=== PATIENT | male | born 1960 | race Caucasian/White ===

== ENCOUNTER 2017-07-15 08:28 | Day surgery (SDC) | payer BC ==
[~2017-07-15 08:28] MED LIST: Buffered Lidocaine 0.9% SYRIN* 5 ML/SYR SYRINGE INTRADERM ONE
[2017-07-15] MEDS ORDERED: ceFAZolin 2 GM PREMIX (*) 2 GM/50 ML BAG IVPB ONE (08:36)
[2017-07-15] MEDS ORDERED: Buffered Lidocaine 0.9% SYRIN* 5 ML/SYR SYRINGE ONE (08:36)
[2017-07-15] MEDS ORDERED: Midazolam* 1 MG/ML 2 ML VIAL (2 MG) ONE ×2 (09:22)
[2017-07-15] MEDS ORDERED: fentaNYL* 50 MCG/ML 2 ML VIAL (100 MCG VIAL) ONE ×2 (09:22→14:54)
[2017-07-15] MEDS ORDERED: EPINEPHRINE 1 MG/ML 1 ML VIAL ONE (10:04)
[2017-07-15] MEDS ORDERED: Bupivacaine 0.5% SDV PF* 30 ML VIAL ONE (14:40)
[2017-07-15] MEDS ORDERED: Ondansetron INJ* 2 MG/ML VIAL IV PRN (15:28)
[2017-07-15] MEDS ORDERED: Ketorolac INJ* 30 MG/ML 1 ML VIAL IV PRN (15:28)
[2017-07-15] MEDS ORDERED: fentaNYL* 50 MCG/ML 2 ML VIAL (100 MCG VIAL) IV PRN (15:28)
[2017-07-15] MEDS ORDERED: Ketorolac INJ* 30 MG/ML 1 ML VIAL ONE (15:52)
[2017-07-15 17:09] VITALS: BP 153/84
--- NOTE | 2017-07-16 10:39 | OP ---
OPERATIVE REPORT: DATE OF OPERATION: 07/15/17 DATE OF : 62 SURGEON: Tremayne Holman MD RETREADER: WEST Rehman A physician assistant community manager was required for the length of the procedure for help with positioning, instrumentation, assistance with closure. ANESTHESIOLOGIST: Galo Beltre DO ANESTHESIA: General anesthesia, regional interscalene block anesthesia, local anesthesia 0.5% Marcaine without epinephrine 10 cc. PRE-OP DIAGNOSES: 1. Right shoulder massive rotator cuff tendon tear, supraspinatus, likely also infraspinatus, upper half subscapularis. 2. Right shoulder proximal biceps tendinosis and subluxation. 3. Right shoulder AC joint arthritis and subacromial impingement. POST-OP DIAGNOSES: 1. Right shoulder massive rotator cuff tendon tear, supraspinatus, anterior aspect of infraspinatus, upper half subscapularis. 2. Right shoulder biceps tendinosis and medial subluxation. 3. Right shoulder subacromial impingement and AC joint arthritis. OPERATIVE PROCEDURE: 1. Right shoulder arthroscopic rotator cuff repair, supraspinatus, upper half subscapularis. 2. Right shoulder arthroscopic biceps tenodesis. 3. Right shoulder arthroscopic subacromial decompression 4. Right shoulder arthroscopic distal clavicle resection. 5. Right shoulder arthroscopic release of biceps and debridement of superior labrum IV FLUIDS: 1000 cc crystalloid. ANTIBIOTICS: Ancef 2 g IV. SPECIMEN: None. COMPLICATIONS: None. IMPLANTS: Yimi and Yimi Mitek suture anchors, 5.5 mm suture anchor, Healix, triple loaded, 5.5 mm knotless Healix suture anchor x1. 4.5 mm Healix suture anchor, double loaded. ESTIMATED BLOOD LOSS: Minimal. 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 He had fallen out of a tree stand 4 to 5 years prior and injured his right shoulder. The patient first presented to me in September and I diagnosed him by MRI with a retracted chronic tear to the supraspinatus, upper half subscapularis and likely part of the infraspinatus. The patient was not able to pursue surgery immediately because of some social obligations, work related and so delayed surgery until now. We spoke before surgery about risks and potential complications of surgery including bleeding, infection, nerve or blood vessel injury, shoulder pain, stiffness, osteoarthritis, implant failure, rotator cuff retear. I booked the patient for a rotator cuff repair and either a biceps release or open tenodesis of biceps. The decision was going to be made intraoperatively. DESCRIPTION OF PROCEDURE: Preoperatively, consent was signed in preoperative holding. Operative extremity was marked in preoperative holding. Part of the patient's shoulder was shaved in preoperative holding. Interscalene block was performed by Dr. Beltre in preoperative holding. The patient was brought back to the operating room and placed supine on the operating room table. The patient was sedated and intubated. More of the right shoulder was shaved, its hair. The patient was turned into lateral decubitus position. Simons bag inflated. Axillary roll placed. All bony prominences padded. Right shoulder was placed in the appropriate forward flexion and abduction. 15 pounds of traction. ChloraPrep of the right shoulder. Draping performed. Surgical time-out performed. I entered the posterior glenohumeral joint with a spinal needle. I infused 30 cc of normal saline. I then entered the shoulder from creating a posterior glenohumeral joint portal using standard technique. I started my diagnostic arthroscopy. The patient had some grade 1 changes, but no unstable cartilage of the humeral head and glenoid. He had significant tendinosis about the biceps tendon. A clear rotator cuff tear retracted medial to the glenoid. He also had clear tear of the upper portion of the subscapularis tendon. Anticipating a subscapularis rotator cuff repair, I next created an anterosuperior portal. I made this lateral to the retracted upper half subscapularis. I debrided synovitic tissue about the subscapularis tendon. At this point, I considered placing a traction stitch in the subscapularis. However, due to how retracted the subscapularis was with the supraspinatus, I thought there would be undue pressure on all of those tendons and difficult to place my anteroinferior portal for placement of anchor with this extent of medial retraction of all tissues. Therefore, instead of at this time performing a subscapularis repair from the vantage point of the glenohumeral joint, I moved to the subacromial space. I replaced my trochanteric cannula from posterior directly into the subacromial space. I created a lateral subacromial portal under visualization. I debrided significant amount of bursitic tissue in the subacromial space. This improved visualization of the retracted rotator cuff. I established a new anterolateral portal that I applied my inflow tube. There appeared to be an L-shaped tear present in the supraspinatus. The longitudinal part of the tear was posterior and then a full width of supraspinatus and part of infraspinatus tear distally. The tear may have included the anterior-most part of the infraspinatus as well. I cleared off the undersurface of the acromion with a vapor. I debrided very minimal inferior hook of the anterior aspect of the acromion. My ayan on full power for some reason was having some difficulty aggressively taking down this bone. I debrided a minimal several millimeters of bone and there looked to be ample space without impingement, so I did not remove more. The bare footprint on the greater tuberosity, I debrided with a vapor arthroscopic shaver and then ayan to prepare for a nice bed for healing. I created 2 different posterolateral portals that aided in visualization of the rotator cuff. The cuff appeared that it could be brought to bone nicely without pressure. It should be stated that before I tested this out, I loosened up the undersurface of the rotator cuff with a switching stick debriding any adhesions between the labrum and the rotator cuff. I created a superolateral portal through which I first placed a triple loaded suture anchor about midway from medial to lateral in the greater tuberosity footprint. I then using Latham suture passers, placed a horizontal mattress stitch in the rotator cuff right at the corner of the L. I next placed 2 additional stitches with the Latham suture passer from that anchor. Each of these stitches close down some of the longitudinal limb of the tear. One was medial and the other one was lateral to the original stitch. This brought rotator cuff tissue nicely to bone. No exposed bare area remaining. To oppose the tissue to more nicely to bone, I decided to put one lateral row anchor in. Using 4 sutures from my medial row anchor, I placed them into a knotless 5.5 mm suture anchor more laterally and distal on the greater tuberosity. I probed my repair and it was nicely stable, as well it was stable with movement. To close down more of the longitudinal limb of the tear more medially, I placed a side by side stitch, using an Latham suture passer and an Orthocord #2 suture. All suture ends were cut. I next debated how to repair the subscapularis, whether I would do it from inside the glenohumeral joint or subacromial. I entered the glenohumeral joint and considered that approach and then visualized as well the subscapularis from the subacromial space. Ultimately, I decided to repair it from the subacromial space. I cleared off some footprint, placed a 4.5 mm double loaded suture anchor and placed 2 simple stitches through the subscapularis rotator cuff tendon. I tied these and cut the suture ends. Repairs all appeared stable. I debrided some additional subacromial bursitic tissue. I approached the AC joint, which was filled with bursitic tissue. I debrided this. I created a new anterior portal, just anterior to the AC joint. I entered a ayan and debrided distal clavicle, so there was at least 8 mm space between the bone ends. Instruments and fluid removed from the subacromial space. I closed skin incisions with [id number] and 12 stitches using nylon 4-0 suture. The simons bag was deflated and the patient was turned into a supine position. Anesthesia was watching the head and neck carefully. We reinflated the simons bag and placed the patient supine on the operating room table. I marked a skin incision longitudinal over the anteromedial upper arm centered just distal to the inferior aspect of the pectoralis major tendon. I incised skin and subcutaneous tissue. I followed the pectoralis major tendon to the bicipital groove and identified the long head of the biceps tendon. I tried to pull the biceps tendon from the wound. I confirmed that it was the biceps tendon and I followed it up the bicipital groove. However, it seemed to be incorporated into the subscapularis rotator cuff repair. I tugged it and tried to loosen it, take it free with my fingers. However, it was firmly affixed, essentially an arthroscopic biceps tenodesis as the biceps tendon was incorporated into the subscapularis repair. Therefore, I decided to close up the open tenodesis incision. Irrigation. Closure of the subcutaneous tissue with buried simple stitches using Vicryl 3-0 suture. Closure of the subcuticular layer with a running stitch using Monocryl 4-0 suture. Mastisol followed by Steri-Strips for this open incision distally. Tegaderm after a 4 x 4 was placed over the incision. The remainder of the incisions had Xeroform, followed by 4x4s followed by ABDs. [id number] tape over the whole shoulder. Cooling unit, shoulder sling and abduction pillow. The patient was awakened and extubated and brought to the PACU. DISPOSITION: The patient will follow up with me in 10 to 14 days. He will start physical therapy next week. He will follow my rotator cuff tendon protocol. He will take Percocet as needed for pain control, Keflex for 3 days for infection prophylaxis, and aspirin for 2 weeks for DVT prophylaxis. [id number]/CPS #: [id number] MTDD
== END 2017-07-15 17:09 | disposition home or self-care (01) ==
LOC: OR 08:28
PROVIDERS: ATTEND Orthopaedic Surgery
DX: M75.121 Complete rotator cuff tear or rupture of right shoulder, not specified as traumatic (principal); M75.81 Other shoulder lesions, right shoulder; M25.811 Other specified joint disorders, right shoulder; M19.011 Primary osteoarthritis, right shoulder; I10 Essential (primary) hypertension; R73.03 Prediabetes; K21.9 Gastro-esophageal reflux disease without esophagitis; Z68.39 Body mass index [BMI] 39.0-39.9, adult
CPT/HCPCS: J0690; J1885; J2250; J3010

== ENCOUNTER 2018-07-31 07:04 | Emergency (ER) | payer BC ==
--- OUTSIDE RECORDS SUMMARY | 2018-07-31 07:20 | XMS REPORT | Continuity of Care Document ---
:1960 External Reference #:[id number] Author Name Ginny Turcios PA Address [address] [place] [address] Care Team Providers Name Role Phone Davonte Yanez M.D. Care Team Information Stock Supervisor Unavailable Payers Type Date Identification Numbers Payment Provider Subscriber Effective: Policy Number: [id number] [employer] 2011 Group Name: BS CN [address] [address] PayID: [id number] [place] [address] Advance Directives Description No Information Available Problems Date Description Provider Status Onset: 09/14/2011 Pure hypercholesterolemia Ginny Turcios PA Active Onset: 09/14/2011 Essential hypertension Ginny Turcios PA Active Onset: 09/14/2011 Type 2 diabetes mellitus Ginny Turcios PA Active Onset: 06/28/2018 Obesity Ginyn Turcios PA Active Onset: 06/28/2018 Gastroesophageal reflux disease Ginny Turcios PA Active Onset: 06/28/2018 Rotator cuff tear arthropathy Ginny Turcios PA Active Family History Date Family Member(s) Problem(s) Comments Father due to Prostate Cancer () Mother due to Breast Cancer () Social History Type Date Description Comments Sex Unknown Marital Status Has been 1 time Lives With Spouse Pets 3 dogs Hand Dominance Right-Handed ETOH Use Occasionally consumes alcohol Tobacco Use Reviewed: 01/03/14 Patient has never smoked 09/27/14 Recreational Drug Use Never Used Drugs Tobacco Use Start: Unknown 6 pack of beer weekly Smoking Status Reviewed: 06/28/18 Patient has never smoked 09/27/14 Allergies, Adverse Reactions, Alerts Description No Known Drug Allergies Medications Medication Date Status Form Strength Qnty SIG Indications Ordering Provider Freestyle 06/07/ Active Misc 100un use daily and Davonte Lancjose armando 2018 its as needed Castellan os, M.D. Metformin HCL 04/24/ Active Tablets ER 500mg 60tab take one Davonte ER 2018 24HR s tablets daily Castellan for the first os, M.D. 2 weeks then increase to to 2 tabletsdaily Freestyle 04/24/ Active Strips 50uni use once Davonte Vargas Test 2018 ts daily and Castellan prn for os, M.D. glucose testing Freestyle 04/24/ Active Device 1unit use daily as Davonte Vargas Blood 2018 s directed for Castellan Glucose glucose os, M.DRadha Monitoring monitoring System Avapro 02/21/ Active Tablets 150mg 30tab 1 by mouth Davonte 2017 s every day Castellan os, M.D. Zantac 03/06/ Active Tablets 300mg 90tab 1 poqhs K21.9 Davonte 2012 s Castellan osMable Omeprazole 03/06/ Active Capsules DR 20mg 60cap take 1 K21.9 Davonte 2012 s capsule by Castellan mouth twice a os, M.D. day Topicort 09/29/ Hx Cream 0.25% 15gm apply to R21 Davonte 2016 - affected area Castellan 06/29/ twice daily os, M.D. 2017 for 5 days Cortisporin 02/12/ Hx 380.22 Davonte Otic 2013 - Castellan Suspension 09/27/ os, M.D. 2014 Neomycin/Poly 02/12/ Hx Suspension 3.5-33962 15ml 3-4 ggtts 380.22 Davonte myxin/Hydroco 2013 - -1 four times a Castellan rtisone 02/12/ day in os, M.D. 2013 affected ear for 5-7 days Ciprodex 02/12/ Hx Suspension 0.3-0.1% 7.5ml 4 ggts 380.22 Davonte 2013 - instilled in Castellan 09/27/ affected ear os, M.D. 2014 twice a day for five to seven day Proventil HFA 11/21/ Hx Aerosol 108(90Bas 8.5g 2 puffs every Davonte 2013 - e) 4 hours as Castellan 07/15/ mcg/Act needed if os, M.D. 2013 condition persists or worsens return to office or ER Tessalon 11/15/ Hx Capsules 200mg 30cap one three 786.2 Davonte 2014 - s times a day Castellan 02/12/ as needed os, M.D. 2013 cough Robitussin 11/15/ Hx 4Oz 1-2 tsps at 786.2 Davonte With Codeine 2013 - bedtime for Castellan 02/12/ cough os, M.D. 2013 Zithromax 09/05/ Hx Tablets 250mg 6tabs day number 461.9 Davonte Z-Sarath 2013 - one two Castellan 09/05/ tablets then os, M.D. 2013 day number two thru day number five one qd Biaxin 09/05/ Hx Tablets 500mg 20tab 1 by mouth 461.9 Davonte 2013 - s twice a day Castellan 02/12/ os, M.D. 2013 Vitamin D 08/21/ Hx 00467Kp 4unit one q weekly Davonte 2012 - s Castellan 07/02/ os, M.D. 2012 Biaxin 07/04/ Hx Tablets 500mg 28tab 1 po bid 461.1 Davonte 2011 - s Castellan 07/02/ os, M.D. 2012 Valsartan-Hyd 06/28/ Hx Tablets 160-25mg 90tab take 1 tablet Davonte rochlorothiaz 2011 - s by mouth once Castellan jyothi 02/21/ daily os, M.D. 2017 Vitamin D 04/21/ Hx Capsules [id number] 4caps take 1 790.6 Davonte 2011 - capsule by Castellan 07/02/ mouth once os, M.D. 2012 weekly Diovan HCT 09/14/ Hx Tablets 160-25mg 30tab take 1 tablet Davonte 2011 - s by mouth once Castellan 07/02/ daily (Needs os, M.D. 2012 Office Visit) Immunizations CPT Code Status Date Vaccine Reaction Lot # 12649 Given 04/24/2018 Tdap Vaccine over 7 risk & benefits Tdap [id number] yrs old discussed 23005 Given 04/24/2018 Influenza risk & benefits FLU 3> [id number] Vac,Quad,Split=>3 Yrs discussed 19766 Given 05/13/2017 Influenza Vac,Quad,Split=>3 Yrs 23809 Given 04/02/2016 Influenza Vac,Quad,Split=>3 Yrs 79056 Given 05/13/2015 Influenza Vac,Quad,Split=>3 Yrs 89820 Given 05/13/2014 Flu Triv Old Code 12248 Given 05/23/2013 Flu Triv Old Code 44893 Given 08/29/2012 Flu Triv Old Code [id number] 22858 Given 05/06/2006 Td- Toxoids Absorbed - Adult 58063 Given 04/01/1994 Rabies Vaccine 10531 Given 03/18/1994 Rabies Vaccine 22499 Given 03/11/1994 Rabies Vaccine 13255 Given 03/08/1994 Rabies Vaccine Vital Signs Date Vital Result Comment 06/28/2018 8:50am Weight 245.00 lb BP Systolic 134 mmHg BP Diastolic 70 mmHg Height 66.6 inches 5'6.60" Body Temperature 98.8 F Respiratory Rate 12 /min BMI (Body Mass Index) 38.8 kg/m2 04/24/2018 8:42am Weight 256.00 lb BP Systolic 140 mmHg BP Diastolic 80 mmHg 03/28/2018 8:55am Weight 256.00 lb w boots BP Systolic 130 mmHg BP Diastolic 80 mmHg 06/29/2017 9:33am Weight 251.00 lb BP Systolic 128 mmHg BP Diastolic 76 mmHg Height 66.6 inches 5'6.60" BMI (Body Mass Index) 39.8 kg/m2 09/30/2016 8:30am Weight 248.00 lb BP Systolic 130 mmHg BP Diastolic 78 mmHg Height 66.6 inches 5'6.60" Body Temperature 98.8 F Respiratory Rate 12 /min BMI (Body Mass Index) 39.3 kg/m2 09/30/2015 8:42am Weight 240.00 lb BP Systolic 130 mmHg BP Diastolic 78 mmHg Height 66.6 inches 5'6.60" Heart Rate 64 /min Body Temperature 98.8 F Respiratory Rate 12 /min BMI (Body Mass Index) 38.0 kg/m2 09/27/2014 8:26am Weight 247.00 lb BP Systolic 132 mmHg BP Diastolic 80 mmHg Height 66 inches 5'6" Heart Rate 60 /min Body Temperature 98.1 F Respiratory Rate 12 /min BMI (Body Mass Index) 39.9 kg/m2 02/12/2014 8:32am Weight 250.00 lb BP Systolic 130 mmHg BP Diastolic 80 mmHg 01/03/2014 8:56am Weight 243.00 lb BP Systolic 138 mmHg BP Diastolic 70 mmHg 11/15/2013 4:15pm Weight 242.00 lb BP Systolic 140 mmHg BP Diastolic 82 mmHg Body Temperature 97.8 F 09/05/2013 9:26am Weight 239.00 lb BP Systolic 130 mmHg BP Diastolic 80 mmHg Height 66.4 inches 5'6.40" Heart Rate 70 /min Body Temperature 98.8 F Respiratory Rate 12 /min BMI (Body Mass Index) 38.1 kg/m2 07/02/2013 8:27am Weight 245.00 lb BP Systolic 130 mmHg BP Diastolic 80 mmHg 03/06/2013 4:38pm BP Systolic 140 mmHg BP Diastolic 80 mmHg 03/06/2013 3:46pm Weight 243.00 lb BP Systolic 160 mmHg BP Diastolic 90 mmHg 02/28/2013 8:26am Weight 243.00 lb BP Systolic 130 mmHg BP Diastolic 78 mmHg 08/29/2012 8:34am Weight 236.00 lb BP Systolic 130 mmHg BP Diastolic 78 mmHg Height 66 inches 5'6" Heart Rate 70 /min Body Temperature 98.8 F Respiratory Rate 16 /min BMI (Body Mass Index) 38.1 kg/m2 07/04/2012 10:37am Weight 235.00 lb Body Temperature 98.9 F 04/21/2012 12:34pm BP Systolic 130 mmHg BP Diastolic 80 mmHg 04/21/2012 8:40am Weight 231.00 lb BP Systolic 140 mmHg BP Diastolic 80 mmHg Height 66 inches 5'6" BMI (Body Mass Index) 37.3 kg/m2 01/03/2012 8:43am Weight 233.00 lb BP Systolic 138 mmHg BP Diastolic 90 mmHg Height 66 inches 5'6" BMI (Body Mass Index) 37.6 kg/m2 09/14/2011 8:29am Weight 232.00 lb BP Systolic 118 mmHg BP Diastolic 70 mmHg Height 66 inches 5'6" BMI (Body Mass Index) 37.4 kg/m2 Results Test Date Facility Test Result H/L Range Note Basic Metabolic Panel 06/20/2018 [facility] Glucose 140 mg/dL High 74-106 5 [phone] BUN 16 mg/dL N 7-18 Creatinine 1.1 mg/dL N 0.6-1.3 Glom Filtration Rate, Estimate >60 mL/min >60 If >60 mL/min >60 2 BUN/Creat 14.5 ratio Sodium 141 mmol/L N 136-145 Potassium 4.5 mmol/L N 3.5-5.1 Chloride 106 mmol/L N 98-107 Carbon Dioxide 26 mmol/L N 21-32 Anion Gap 9 mEq/L N 8-16 Calcium 8.7 mg/dL N 8.5-10.1 Hemoglobin A1c 06/20/2018 [facility] Glycohemoglobin 7.0 % High 4.2 -6.3 3 (Glyco HGB) [phone] (A1c) eAG 154 mg/dL Liver Function Panel 06/20/2018 [facility] Total Protein 7.6 g/dL N 6.4-8.2 [phone] Albumin 4.0 g/dL N 3.4-5.0 Globulin 3.6 g/dL N 1.9-4.3 Alb/Glob 1.1 ratio Bilirubin,Total 0.6 mg/dL N 0.2-1.0 Bilirubin,Direct 0.2 mg/dL N 0.0-0.2 Bilirubin,Indirect 0.4 mg/dL N 0.0-0.9 Sgot/Ast 55 U/L High 15-37 SGPT/Alt 108 U/L High 12-78 Alkaline Phosphatase 76 U/L N 45-117 Basic Metabolic Panel 04/07/2018 [facility] Glucose 267 mg/dL High 74-106 4 [phone] BUN 17 mg/dL N 7-18 Creatinine 1.1 mg/dL N 0.6-1.3 Glom Filtration Rate, Estimate >60 mL/min >60 If >60 mL/min >60 5 BUN/Creat 15.4 ratio Sodium 142 mmol/L N 136-145 Potassium 4.1 mmol/L N 3.5-5.1 Chloride 108 mmol/L High 98-107 Carbon Dioxide 28 mmol/L N 21-32 Anion Gap 6 mEq/L Low 8-16 Calcium 8.6 mg/dL N 8.5-10.1 Hemoglobin A1c 04/07/2018 [facility] Glycohemoglobin 9.1 % High 4.2 -6.3 6 (Glyco HGB) [phone] (A1c) eAG 214 mg/dL Liver Function Panel 04/07/2018 [facility] Total Protein 7.1 g/dL N 6.4-8.2 [phone] Albumin 3.9 g/dL N 3.4-5.0 Globulin 3.2 g/dL N 1.9-4.3 Alb/Glob 1.2 ratio Bilirubin,Total 0.6 mg/dL N 0.2-1.0 Bilirubin,Direct 0.2 mg/dL N 0.0-0.2 Bilirubin,Indirect 0.4 mg/dL N 0.0-0.9 Sgot/Ast 54 U/L High 15-37 SGPT/Alt 112 U/L High 12-78 Alkaline Phosphatase 96 U/L N 45-117 Lipid Profile 04/07/2018 [facility] Cholesterol 164 mg/dL <200 7 (Trig/Chol/HDL) [phone] Triglycerides 212 mg/dL High <150 8 HDL Cholesterol 32 mg/dL Low >40 9 LDL-Cholesterol 90 mg/dL < 100 10 Basic Metabolic Panel 07/05/2017 [facility] Glucose 136 mg/dL High 74-106 11 [phone] BUN 20 mg/dL High 7-18 Creatinine 1.1 mg/dL N 0.6-1.3 Glom Filtration Rate, Estimate >60 mL/min >60 If >60 mL/min >60 12 BUN/Creat 18.1 ratio Sodium 142 mmol/L N 136-145 Potassium 4.2 mmol/L N 3.5-5.1 Chloride 106 mmol/L N 98-107 Carbon Dioxide 29 mmol/L N 21-32 Anion Gap 7 mEq/L Low 8-16 Calcium 9.2 mg/dL N 8.5-10.1 CBC Auto Diff 07/05/2017 [facility] White Blood Count 5.4 K/uL N 3.4-10.5 [phone] Red Blood Count 4.53 M/uL N 4.20-5.80 Hemoglobin 15.3 gm/dL N 12.8-17.0 Hematocrit 42.6 % N 38.0-48.0 Mean Cell Volume 94.0 fl N 80.0-96.0 Mean Corpuscular HGB 33.8 pg High 27.0-33.0 Mean Corpuscular HGB Conc 35.9 g/dL N 31.7-36.0 Platelet Count 163 K/uL N 150-400 Red Cell Distri Width SD 43.1 fl N 36-51 Red Cell Distri Width %CV 12.8 % N 11.6-15.8 Mean Platelet Volume 11.8 fL High 6.6-10.6 Neut% 49.3 % N 33.0-73.0 Lymph % 35.1 % N 20.0-42.0 [place] % 10.1 % High 0.0-10.0 Eo% 4.9 % N 0.0-6.6 Bas% 0.6 % N 0.0-1.1 Neut# 2.65 K/uL N 1.8-7.0 Lymph # 1.88 K/uL N 1.0-4.0 [place] # 0.54 K/uL N 0.0-0.8 Eos # 0.26 K/uL N 0.0-0.5 Baso # 0.03 K/uL N 0.0-0.1 Hemoglobin A1c 07/05/2017 [facility] Glycohemoglobin 6.8 % High 4.2 -6.3 13 (Glyco HGB) [phone] (A1c) eAG 148 mg/dL Lipid Profile 07/05/2017 [facility] Cholesterol 194 mg/dL <200 14 (Trig/Chol/HDL) [phone] Triglycerides 223 mg/dL High <150 15 HDL Cholesterol 44 mg/dL >40 16 LDL-Cholesterol 105 mg/dL < 100 17 Liver Function Panel 07/05/2017 [facility] Total Protein 7.7 g/dL N 6.4-8.2 [phone] Albumin 4.1 g/dL N 3.4-5.0 Globulin 3.6 g/dL N 1.9-4.3 Alb/Glob 1.1 ratio Bilirubin,Total 0.5 mg/dL N 0.2-1.0 Bilirubin,Direct 0.1 mg/dL N 0.0-0.2 Bilirubin,Indirect 0.4 mg/dL N 0.0-0.9 Sgot/Ast 26 U/L N 15-37 SGPT/Alt 70 U/L N 12-78 Alkaline Phosphatase 72 U/L N 45-117 Basic Metabolic Panel 10/08/2016 [facility] Glucose 146 mg/dL High 74-106 18 [phone] BUN 19 mg/dL High 7-18 Creatinine 1.2 mg/dL N 0.6-1.3 Glom Filtration Rate, Estimate >60 mL/min >60 If >60 mL/min >60 19 BUN/Creat 15.8 ratio Sodium 143 mmol/L N 136-145 Potassium 4.2 mmol/L N 3.5-5.1 Chloride 107 mmol/L N 98-107 Carbon Dioxide 26 mmol/L N 21-32 Anion Gap 10 mEq/L N 8-16 Calcium 8.9 mg/dL N 8.5-10.1 CBC Auto Diff 10/08/2016 [facility] White Blood Count 5.3 K/uL N 3.4-10.5 [phone] Red Blood Count 4.58 M/uL N 4.20-5.80 Hemoglobin 15.0 gm/dL N 12.8-17.0 Hematocrit 42.4 % N 38.0-48.0 Mean Cell Volume 92.6 fl N 80.0-96.0 Mean Corpuscular HGB 32.8 pg N 27.0-33.0 Mean Corpuscular HGB Conc 35.4 g/dL N 31.7-36.0 Platelet Count 188 K/uL N 150-400 Red Cell Distri Width SD 43.9 fl N 36-51 Red Cell Distri Width %CV 13.4 % N 11.6-15.8 Mean Platelet Volume 10.8 fL High 6.6-10.6 Neut% 52.5 % N 33.0-73.0 Lymph % 33.0 % N 20.0-42.0 [place] % 9.3 % N 0.0-10.0 Eo% 4.4 % N 0.0-6.6 Bas% 0.8 % N 0.0-1.1 Neut# 2.77 K/uL N 1.8-7.0 Lymph # 1.74 K/uL N 1.0-4.0 [place] # 0.49 K/uL N 0.0-0.8 Eos # 0.23 K/uL N 0.0-0.5 Baso # 0.04 K/uL N 0.0-0.1 Lipid Profile 10/08/2016 [facility] Cholesterol 191 mg/dL <200 20 (Trig/Chol/HDL) [phone] Triglycerides 144 mg/dL <150 21 HDL Cholesterol 40 mg/dL >40 22 LDL-Cholesterol 122 mg/dL < 100 23 Liver Function Panel 10/08/2016 [facility] Total Protein 7.5 g/dL N 6.4-8.2 [phone] Albumin 4.3 g/dL N 3.4-5.0 Globulin 3.2 g/dL N 1.9-4.3 Alb/Glob 1.3 ratio Bilirubin,Total 0.5 mg/dL N 0.2-1.0 Bilirubin,Direct 0.1 mg/dL N 0.0-0.2 Bilirubin,Indirect 0.4 mg/dL N 0.0-0.9 Sgot/Ast 32 U/L N 15-37 SGPT/Alt 68 U/L N 12-78 Alkaline Phosphatase 75 U/L N 45-117 Hemoglobin A1c 10/08/2016 [facility] Glycohemoglobin 6.7 % High 4.2 -6.3 24 (Glyco HGB) [phone] (A1c) eAG 146 mg/dL Basic Metabolic Panel 10/10/2015 [facility] Glucose 120 mg/dL High 74-106 [phone] BUN 18 mg/dL 7-18 Creatinine 1.1 mg/dL 0.6-1.3 Glom Filtration Rate, Estimate >60 mL/min >60 If >60 mL/min >60 25 BUN/Creat 16.3 ratio Sodium 141 mmol/L 136-145 Potassium 4.4 mmol/L 3.5-5.1 Chloride 105 mmol/L 98-107 Carbon Dioxide 28 mmol/L 21-32 Anion Gap 8 mEq/L 8-16 Calcium 8.8 mg/dL 8.5-10.1 CBC W/Automated Diff 10/10/2015 [facility] White Blood 5.2 K/uL 3.4-10.5 [phone] Count Red Blood Count 4.70 M/uL 4.20-5.80 Hemoglobin 15.7 gm/dL 12.8-17.0 Hematocrit 43.3 % 38.0-48.0 Mean Cell Volume 92.1 fl 80.0-96.0 Mean Corpuscular HGB 33.4 pg High 27.0-33.0 Mean Corpuscular HGB Conc 36.3 g/dL High 31.7-36.0 Platelet Count 166 K/uL 150-400 Red Cell Distri Width SD 43.2 fl 36-51 Red Cell Distri Width %CV 13.1 % 11.6-15.8 Mean Platelet Volume 11.5 fL High 6.6-10.6 Neut% 47.9 % 33.0-73.0 Lymph % 33.8 % 17.0-56.0 [place] % 10.3 % High 0.0-10.0 Eo% 6.9 % High 0.0-5.0 Bas% 1.1 % High 0.1-1.0 Neut# 2.50 K/uL 1.8-7.0 Lymph # 1.77 K/uL Low 1.8-7.0 [place] # 0.54 K/uL 0.0-0.8 Eos # 0.36 K/uL 0.0-0.5 Baso # 0.06 K/uL Low 0.1-0.2 LDL Cholesterol Profile 10/10/2015 [facility] Cholesterol 191 mg/dL <200 26 [phone] Triglycerides 118 mg/dL <150 27 HDL Cholesterol 38 mg/dL Low >40 28 LDL-Cholesterol 129 mg/dL < 100 29 Liver Function Tests 10/10/2015 [facility] Total Protein 7.6 g/dL 6.4-8.2 [phone] Albumin 4.2 g/dL 3.4-5.0 Globulin 3.4 g/dL 1.9-4.3 Alb/Glob 1.2 ratio Bilirubin,Total 0.6 mg/dL 0.2-1.0 Bilirubin,Direct 0.1 mg/dL 0.0-0.2 Bilirubin,Indirect 0.5 mg/dL 0.0-0.9 Sgot/Ast 29 U/L 15-37 SGPT/Alt 51 U/L 12-78 Alkaline Phosphatase 76 U/L 45-117 Hemoglobin A1c 10/10/2015 [facility] Glycohemoglobin (A1c) 5.8 % 4.2-6.3 30 [phone] eAG 120 mg/dL Basic Metabolic Panel 09/04/2014 [facility] Glucose 134 mg/dL High 74-106 [phone] BUN 14 mg/dL 7-18 Creatinine 1.1 mg/dL 0.6-1.3 Glom Filtration Rate, Estimate >60 mL/min >60 If >60 mL/min >60 31 BUN/Creat 12.7 ratio Sodium 142 mmol/L 136-145 Potassium 4.1 mmol/L 3.5-5.1 Chloride 106 mmol/L 98-107 Carbon Dioxide 29 mmol/L 21-32 Anion Gap 11 mEq/L 8-16 Calcium 8.9 mg/dL 8.5-10.1 Glycohemoglobin A1c 09/04/2014 [facility] Glycohemoglobin 6.1 % 4.2-6.3 32 [phone] (A1c) eAG 128 mg/dL Basic Metabolic Panel 12/26/2013 [facility] Glucose 132 mg/dL High 76-115 [phone] BUN 19 mg/dL 5-23 Creatinine 1.0 mg/dL 0.5-1.4 Glom Filtration Rate, Estimate >60 mL/min >60 If >60 mL/min >60 33 BUN/Creat 19.0 ratio Sodium 138 mmol/L 136-145 Potassium 3.8 mmol/L 3.5-5.1 Chloride 106 mmol/L 98-107 Carbon Dioxide 27 mEq/L 18-29 Anion Gap 9 mEq/L 8-16 Calcium 9.1 mg/dL 8.5-10.1 LDL Cholesterol Profile 12/26/2013 [facility] Cholesterol 195 mg/dL 120-200 [phone] Triglycerides 120 mg/dL 16-231 HDL Cholesterol 41 mg/dL 29-83 LDL-Cholesterol 130 mg/dL 62-185 Liver Function Tests 12/26/2013 [facility] Total Protein 7.7 g/dL 6.3-8.0 [phone] Albumin 4.2 g/dL 3.5-5.0 Globulin 3.5 g/dL 1.9-4.3 Alb/Glob 1.2 ratio Bilirubin,Total 0.6 mg/dL 0.2-1.2 Bilirubin,Direct < 0.1 mg/dL Low 0.1-0.4 Bilirubin,Indirect 0.5 mg/dL 0.0-0.9 Sgot/Ast 38 U/L 16-40 SGPT/Alt 64 U/L 30-65 Alkaline Phosphatase 65 U/L 50-136 Glycohemoglobin 12/26/2013 [facility] Glycohemoglobin 6.3 % High 4.8-6.0 34 A1c [phone] (A1c) eAG 134 mg/dL Basic Metabolic Panel 08/29/2013 [facility] Glucose 125 mg/dL High 76-115 [phone] BUN 18 mg/dL 5-23 Creatinine 1.0 mg/dL 0.5-1.4 Glom Filtration Rate, Estimate >60 mL/min >60 If >60 mL/min >60 35 BUN/Creat 18.0 ratio Sodium 139 mmol/L 136-145 Potassium 4.0 mmol/L 3.5-5.1 Chloride 105 mmol/L 98-107 Carbon Dioxide 28 mEq/L 18-29 Anion Gap 10 mEq/L 8-16 Calcium 9.3 mg/dL 8.5-10.1 Glycohemoglobin A1c 08/29/2013 [facility] Glycohemoglobin 5.8 % 4.8-6.0 36 [phone] (A1c) eAG 120 mg/dL LDL Cholesterol Profile 06/27/2013 [facility] Cholesterol 199 mg/dL 120-200 [phone] Triglycerides 123 mg/dL 16-231 HDL Cholesterol 42 mg/dL 29-83 LDL-Cholesterol 132 mg/dL 62-185 Laboratory 06/27/2013 [facility] Vitamin 38.2 30.0-100.0 37 test finding [phone] D,25-Hydroxy ng/mL Basic 06/27/2013 [facility] Glucose 129 High 76-115 Metabolic [phone] mg/dL Panel BUN 19 mg/dL 5-23 Creatinine 1.1 mg/dL 0.5-1.4 Glom Filtration Rate, Estimate >60 mL/min >60 If >60 mL/min >60 38 BUN/Creat 17.2 ratio Sodium 138 mmol/L 136-145 Potassium 3.9 mmol/L 3.5-5.1 Chloride 103 mmol/L 98-107 Carbon Dioxide 30 mEq/L High 18-29 Anion Gap 9 mEq/L 8-16 Calcium 9.0 mg/dL 8.5-10.1 Glycohemoglobin A1c 06/27/2013 [facility] Glycohemoglobin 5.7 % 4.8-6.0 39 [phone] (A1c) eAG 117 mg/dL Basic Metabolic Panel 02/21/2013 [facility] Glucose 116 mg/dL High 76-115 [phone] BUN 14 mg/dL 5-23 Creatinine 1.1 mg/dL 0.5-1.4 Glom Filtration Rate, Estimate >60 mL/min >60 If >60 mL/min >60 40 BUN/Creat 12.7 ratio Sodium 141 mmol/L 136-145 Potassium 4.2 mmol/L 3.5-5.1 Chloride 105 mmol/L 98-107 Carbon Dioxide 27 mEq/L 18-29 Anion Gap 13 mEq/L 8-16 Calcium 9.1 mg/dL 8.5-10.1 LDL Cholesterol Profile 02/21/2013 [facility] Cholesterol 185 mg/dL 120-200 [phone] Triglycerides 131 mg/dL 16-231 HDL Cholesterol 45 mg/dL 29-83 LDL-Cholesterol 114 mg/dL 62-185 Liver Function Tests 02/21/2013 [facility] Total Protein 7.3 g/dL 6.3-8.0 [phone] Albumin 4.2 g/dL 3.5-5.0 Globulin 3.1 g/dL 1.9-4.3 Alb/Glob 1.4 ratio Bilirubin,Total 0.5 mg/dL 0.2-1.2 Bilirubin,Direct 0.1 mg/dL 0.1-0.4 Bilirubin,Indirect 0.4 mg/dL 0.0-0.9 Sgot/Ast 27 U/L 16-40 SGPT/Alt 54 U/L 30-65 Alkaline Phosphatase 77 U/L 50-136 Glycohemoglobin A1c 02/21/2013 [facility] Glycohemoglobin 5.7 % 4.8-6.0 41 [phone] (A1c) eAG 117 mg/dL Laboratory 02/21/2013 [facility] Vitamin 26.21 32.0-100.0 42 test finding [phone] D,25-Hydroxy ng/mL Laboratory 10/20/2012 [facility] Vitamin 38.5 30.0-100.0 43 test finding [phone] D,25-Hydroxy ng/mL Basic 08/18/2012 [facility] Glucose 128 High 76-115 Metabolic [phone] mg/dL Panel BUN 18 mg/dL 5-23 Creatinine 1.0 mg/dL 0.5-1.4 Glom Filtration Rate, Estimate >60 mL/min >60 If >60 mL/min >60 44 BUN/Creat 18.0 ratio Sodium 142 mmol/L 136-145 Potassium 4.1 mmol/L 3.5-5.1 Chloride 105 mmol/L 98-107 Carbon Dioxide 30 mEq/L High 18-29 Anion Gap 11 mEq/L 8-16 Calcium 9.8 mg/dL 8.5-10.1 CBC W/Automated Diff 08/18/2012 [facility] White Blood 4.7 K/uL 3.4-10.5 [phone] Count Red Blood Count 4.71 M/uL 4.20-5.80 Hemoglobin 15.5 gm/dL 12.8-17.0 Hematocrit 43.8 % 38.0-48.0 Mean Cell Volume 93.0 fl 80.0-96.0 Mean Corpuscular HGB 32.9 pg 27.0-33.0 Mean Corpuscular HGB Conc 35.4 g/dL 31.7-36.0 Platelet Count 216 K/uL 150-400 Red Cell Distri Width SD 44.1 fl 36-51 Red Cell Distri Width %CV 13.2 % 11.6-15.8 Mean Platelet Volume 10.5 fL 6.6-10.6 Neut% 51.1 % 33.0-73.0 Lymph % 34.2 % 17.0-56.0 [place] % 9.5 % 0.0-10.0 Eo% 4.4 % 0.0-5.0 Bas% 0.8 % 0.1-1.0 Neut# 2.41 K/uL 1.8-7.0 Lymph # 1.62 K/uL 1.2-4.0 [place] # 0.45 K/uL 0.0-0.6 Eos # 0.21 K/uL 0.0-0.5 Baso # 0.04 K/uL Low 0.1-0.2 Laboratory test 08/18/2012 [facility] Vitamin 24.1 Low 30.0-100.0 45 finding [phone] D,25-Hydroxy ng/mL Glycohemoglobin 08/18/2012 [facility] Glycohemoglobin 5.7 % 4.8- 6.0 46 A1c [phone] (A1c) eAG 117 mg/dL Basic Metabolic Panel 04/19/2012 [facility] Glucose 117 mg/dL High 76-115 [phone] BUN 14 mg/dL 5-23 Creatinine 1.0 mg/dL 0.5-1.4 Glom Filtration Rate, Estimate >60 mL/min >60 If >60 mL/min >60 47 BUN/Creat 14.0 ratio Sodium 140 mmol/L 136-145 Potassium 3.9 mmol/L 3.5-5.1 Chloride 104 mmol/L 98-107 Carbon Dioxide 27 mEq/L 18-29 Anion Gap 13 mEq/L 8-16 Calcium 9.3 mg/dL 8.5-10.1 LDL Cholesterol Profile 04/19/2012 [facility] Cholesterol 190 mg/dL 120-200 [phone] Triglycerides 124 mg/dL 16-231 HDL Cholesterol 50 mg/dL 29-83 LDL-Cholesterol 115 mg/dL 62-185 Liver Function Tests 04/19/2012 [facility] Total Protein 7.3 g/dL 6.3-8.0 [phone] Albumin 4.0 g/dL 3.5-5.0 Globulin 3.3 g/dL 1.9-4.3 Alb/Glob 1.2 ratio Bilirubin,Total 0.7 mg/dL 0.2-1.2 Bilirubin,Direct 0.2 mg/dL 0.1-0.4 Bilirubin,Indirect 0.5 mg/dL 0.0-0.9 Sgot/Ast 15 U/L Low 16-40 SGPT/Alt 32 U/L 30-65 Alkaline Phosphatase 54 U/L 50-136 Glycohemoglobin A1c 04/19/2012 [facility] Glycohemoglobin 5.9 % 4.8-6.0 48 [phone] (A1c) eAG 123 mg/dL Laboratory test 04/19/2012 [facility] Vitamin 25.7 Low 30.0-100.0 49 finding [phone] D,25-Hydroxy ng/mL Glycohemoglobin 01/12/2012 [facility] Glycohemoglobin 6.0 % 4.8- 6.0 50 A1c [phone] (A1c) eAG 126 mg/dL Liver Function Tests 01/12/2012 [facility] Total Protein 7.5 g/dL 6.3-8.0 [phone] Albumin 4.2 g/dL 3.5-5.0 Globulin 3.3 g/dL 1.9-4.3 Alb/Glob 1.3 ratio Bilirubin,Total 0.4 mg/dL 0.2-1.2 Bilirubin,Direct < 0.1 mg/dL Low 0.1-0.4 Bilirubin,Indirect 0.3 mg/dL 0.0-0.9 Sgot/Ast 19 U/L 16-40 SGPT/Alt 32 U/L 30-65 Alkaline Phosphatase 65 U/L 50-136 LDL Cholesterol Profile 01/12/2012 [facility] Cholesterol 184 mg/dL 120-200 [phone] Triglycerides 71 mg/dL 16-231 HDL Cholesterol 52 mg/dL 29-83 LDL-Cholesterol 118 mg/dL 62-185 Basic Metabolic Panel 01/12/2012 [facility] Glucose 113 mg/dL 76- 115 [phone] BUN 20 mg/dL 5-23 Creatinine 1.0 mg/dL 0.5-1.4 Glom Filtration Rate, Estimate >60 mL/min >60 If >60 mL/min >60 51 BUN/Creat 20.0 ratio Sodium 144 mmol/L 136-145 Potassium 3.9 mmol/L 3.5-5.1 Chloride 110 mmol/L High 98-107 Carbon Dioxide 26 mEq/L 18-29 Anion Gap 12 mEq/L 8-16 Calcium 9.3 mg/dL 8.5-10.1 Glycohemoglobin A1c 09/10/2011 [facility] Glycohemoglobin 6.0 % 4.8-6.0 52 [phone] (A1c) eAG 126 mg/dL LDL Cholesterol Profile 09/10/2011 [facility] Cholesterol 187 mg/dL 120-200 [phone] Triglycerides 83 mg/dL 16-231 HDL Cholesterol 47 mg/dL 29-83 LDL-Cholesterol 123 mg/dL 62-185 Basic Metabolic Panel 09/10/2011 [facility] Glucose 123 mg/dL High 76-115 [phone] BUN 17 mg/dL 5-23 Creatinine 0.9 mg/dL 0.5-1.4 Glom Filtration Rate, Estimate >60 mL/min >60 If >60 mL/min >60 53 BUN/Creat 18.8 ratio Sodium 142 mmol/L 136-145 Potassium 4.1 mmol/L 3.5-5.1 Chloride 106 mmol/L 98-107 Carbon Dioxide 28 mEq/L 18-29 Anion Gap 12 mEq/L 8-16 Calcium 9.1 mg/dL 8.5-10.1 Liver Function Tests 09/10/2011 [facility] Total Protein 7.4 g/dL 6.3-8.0 [phone] Albumin 4.2 g/dL 3.5-5.0 Globulin 3.2 g/dL 1.9-4.3 Alb/Glob 1.3 ratio Bilirubin,Total 0.6 mg/dL 0.2-1.2 Bilirubin,Direct 0.1 mg/dL 0.1-0.4 Bilirubin,Indirect 0.5 mg/dL 0.0-0.9 Sgot/Ast 19 U/L 16-40 SGPT/Alt 33 U/L 30-65 Alkaline Phosphatase 59 U/L 50-136 1 R79.9 2 Note: Persistent reduction for 3 months or more in an eGFR <60 mL/min/1.73 m2 defines CKD. Patients with eGFR values >/=60 mL/min/1.73 m2 may also have CKD if evidence of persistent proteinuria is present. The original MDRD equation for estimated GFR is not valid for patients less than 18 years of age. Additional information may be found at www.kdoqi.org. 3 Elevated levels of HbA1c suggest the need for more aggressive treatment of glycemia. The [place] [employer] recommends that a primary goal of therapy should be a HbA1c of <7% and that physicians should re-evaluate the treatment regimen in patients with HbA1c values consistently >8%. 4 I10,E73.9,R21.9 5 Note: Persistent reduction for 3 months or more in an eGFR <60 mL/min/1.73 m2 defines CKD. Patients with eGFR values >/=60 mL/min/1.73 m2 may also have CKD if evidence of persistent proteinuria is present. The original MDRD equation for estimated GFR is not valid for patients less than 18 years of age. Additional information may be found at www.kdoqi.org. 6 Elevated levels of HbA1c suggest the need for more aggressive treatment of glycemia. The [place] [employer] recommends that a primary goal of therapy should be a HbA1c of <7% and that physicians should re-evaluate the treatment regimen in patients with HbA1c values consistently >8%. 7 Reference Guidelines*: Desirable: ........... < 200 mg/dL Borderline High: ..... 200-239 mg/dL High: ................ >=240 mg/dL * The National Cholesterol Education Program (NCEP) 8 Reference Guidelines*: Normal: ............. < 150 mg/dL Borderline High: .... 150-199 mg/dL High: ............... 200-499 mg/dL Very High: .......... > 500 mg/dL * Source: National Cholesterol Education Program (NCEP) 9 Reference Guidelines*: Low HDL: ..... < 40 mg/dL Normal: ..... 40-60 mg/dL Desirable: ... > 60 mg/dL *The National Cholesterol Education Program(NCEP) 10 Reference Guidelines*: Optimal:........... <100 mg/dL Near Optimal....... 100-129 mg/dL Borderline High.... 130-159 mg/dL High............... 160-189 mg/dL Very High.......... >=190 mg/dL * Source: National Cholesterol Education Program (NCEP) 11 I10,R73.9,E78.5,K21.9 12 Note: Persistent reduction for 3 months or more in an eGFR <60 mL/min/1.73 m2 defines CKD. Patients with eGFR values >/=60 mL/min/1.73 m2 may also have CKD if evidence of persistent proteinuria is present. The original MDRD equation for estimated GFR is not valid for patients less than 18 years of age. Additional information may be found at www.kdoqi.org. 13 Elevated levels of HbA1c suggest the need for more aggressive treatment of glycemia. The [place] [employer] recommends that a primary goal of therapy should be a HbA1c of <7% and that physicians should re-evaluate the treatment regimen in patients with HbA1c values consistently >8%. 14 Reference Guidelines*: Desirable: ........... < 200 mg/dL Borderline High: ..... 200-239 mg/dL High: ................ >=240 mg/dL * The National Cholesterol Education Program (NCEP) 15 Reference Guidelines*: Normal: ............. < 150 mg/dL Borderline High: .... 150-199 mg/dL High: ............... 200-499 mg/dL Very High: .......... > 500 mg/dL * Source: National Cholesterol Education Program (NCEP) 16 Reference Guidelines*: Low HDL: ..... < 40 mg/dL Normal: ..... 40-60 mg/dL Desirable: ... > 60 mg/dL *The National Cholesterol Education Program(NCEP) 17 Reference Guidelines*: Optimal:........... <100 mg/dL Near Optimal....... 100-129 mg/dL Borderline High.... 130-159 mg/dL High............... 160-189 mg/dL Very High.......... >=190 mg/dL * Source: National Cholesterol Education Program (NCEP) 18 E78.5,K21.9,R73.9 19 Note: Persistent reduction for 3 months or more in an eGFR <60 mL/min/1.73 m2 defines CKD. Patients with eGFR values >/=60 mL/min/1.73 m2 may also have CKD if evidence of persistent proteinuria is present. The original MDRD equation for estimated GFR is not valid for patients less than 18 years of age. Additional information may be found at www.kdoqi.org. 20 Reference Guidelines*: Desirable: ........... < 200 mg/dL Borderline High: ..... 200-239 mg/dL High: ................ >=240 mg/dL * The National Cholesterol Education Program (NCEP) 21 Reference Guidelines*: Normal: ............. < 150 mg/dL Borderline High: .... 150-199 mg/dL High: ............... 200-499 mg/dL Very High: .......... > 500 mg/dL * Source: National Cholesterol Education Program (NCEP) 22 Reference Guidelines*: Low HDL: ..... < 40 mg/dL Normal: ..... 40-60 mg/dL Desirable: ... > 60 mg/dL *The National Cholesterol Education Program(NCEP) 23 Reference Guidelines*: Optimal:........... <100 mg/dL Near Optimal....... 100-129 mg/dL Borderline High.... 130-159 mg/dL High............... 160-189 mg/dL Very High.......... >=190 mg/dL * Source: National Cholesterol Education Program (NCEP) 24 Elevated levels of HbA1c suggest the need for more aggressive treatment of glycemia. The [place] [employer] recommends that a primary goal of therapy should be a HbA1c of <7% and that physicians should re-evaluate the treatment regimen in patients with HbA1c values consistently >8%. 25 Note: Persistent reduction for 3 months or more in an eGFR <60 mL/min/1.73 m2 defines CKD. Patients with eGFR values >/=60 mL/min/1.73 m2 may also have CKD if evidence of persistent proteinuria is present. The original MDRD equation for estimated GFR is not valid for patients less than 18 years of age. Additional information may be found at www.kdoqi.org. 26 Reference Guidelines*: Desirable: ........... < 200 mg/dL Borderline High: ..... 200-239 mg/dL High: ................ >=240 mg/dL * The National Cholesterol Education Program (NCEP) 27 Reference Guidelines*: Normal: ............. < 150 mg/dL Borderline High: .... 150-199 mg/dL High: ............... 200-499 mg/dL Very High: .......... > 500 mg/dL * Source: National Cholesterol Education Program (NCEP) 28 Reference Guidelines*: Low HDL: ..... < 40 mg/dL Normal: ..... 40-60 mg/dL Desirable: ... > 60 mg/dL *The National Cholesterol Education Program(NCEP) 29 Reference Guidelines*: Optimal:........... <100 mg/dL Near Optimal....... 100-129 mg/dL Borderline High.... 130-159 mg/dL High............... 160-189 mg/dL Very High.......... >=190 mg/dL * Source: National Cholesterol Education Program (NCEP) 30 Elevated levels of HbA1c suggest the need for more aggressive treatment of glycemia. The [place] [employer] recommends that a primary goal of therapy should be a HbA1c of <7% and that physicians should re-evaluate the treatment regimen in patients with HbA1c values consistently >8%. 31 Note: Persistent reduction for 3 months or more in an eGFR <60 mL/min/1.73 m2 defines CKD. Patients with eGFR values >/=60 mL/min/1.73 m2 may also have CKD if evidence of persistent proteinuria is present. The original MDRD equation for estimated GFR is not valid for patients less than 18 years of age. Additional information may be found at www.kdoqi.org. 32 Elevated levels of HbA1c suggest the need for more aggressive treatment of glycemia. The [place] [employer] recommends that a primary goal of therapy should be a HbA1c of <7% and that physicians should re-evaluate the treatment regimen in patients with HbA1c values consistently >8%. 33 Note: Persistent reduction for 3 months or more in an eGFR <60 mL/min/1.73 m2 defines CKD. Patients with eGFR values >/=60 mL/min/1.73 m2 may also have CKD if evidence of persistent proteinuria is present. The original MDRD equation for estimated GFR is not valid for patients less than 18 years of age. Additional information may be found at www.kdoqi.org. 34 A1c value between 5.7% and 6.4% is considered at increased risk for diabetes. A1c value greater than 6.5 % is considered essentially diagnostic for Type II diabetes. Current guidelines recommend a treatment goal of <7% for diabetic patients. This method will measure glycosylated hemoglobin variants, HbS, HbG, HbH, HbWayne, HbC, HbE, etc. Other hemoglobin- opathies may give incorrect results with this test. 35 Note: Persistent reduction for 3 months or more in an eGFR <60 mL/min/1.73 m2 defines CKD. Patients with eGFR values >/=60 mL/min/1.73 m2 may also have CKD if evidence of persistent proteinuria is present. The original MDRD equation for estimated GFR is not valid for patients less than 18 years of age. Additional information may be found at www.kdoqi.org. 36 A1c value between 5.7% and 6.4% is considered at increased risk for diabetes. A1c value greater than 6.5 % is considered essentially diagnostic for Type II diabetes. Current guidelines recommend a treatment goal of <7% for diabetic patients. This method will measure glycosylated hemoglobin variants, HbS, HbG, HbH, HbWayne, HbC, HbE, etc. Other hemoglobin- opathies may give incorrect results with this test. 37 Vitamin D deficiency has been defined by the [place] [employer] and an Endocrine Society practice guideline as a level of serum 25-OH vitamin D less than 20 ng/mL (1,2). The Endocrine Society went on to further define vitamin D insufficiency as a level between 21 and 29 ng/mL (2). 1. IOM ([place] [employer]). 2010. Dietary reference intakes for calcium and D. [place]: The National Academies Press. 2. Cali MF, Alison PENDLETON, Javier LOU, et al. Evaluation, treatment, and prevention of vitamin D deficiency: an Endocrine Society clinical practice guideline. JCEM. 2010; 96(7):1911-30. Performed at: RN - [facility] [address] [id number] [facility]: Arminda Edmonds MD, Phone: [phone] 38 Note: Persistent reduction for 3 months or more in an eGFR <60 mL/min/1.73 m2 defines CKD. Patients with eGFR values >/=60 mL/min/1.73 m2 may also have CKD if evidence of persistent proteinuria is present. The original MDRD equation for estimated GFR is not valid for patients less than 18 years of age. Additional information may be found at www.kdoqi.org. 39 A1c value between 5.7% and 6.4% is considered at increased risk for diabetes. A1c value greater than 6.5 % is considered essentially diagnostic for Type II diabetes. Current guidelines recommend a treatment goal of <7% for diabetic patients. This method will measure glycosylated hemoglobin variants, HbS, HbG, HbH, HbWayne, HbC, HbE, etc. Other hemoglobin- opathies may give incorrect results with this test. 40 Note: Persistent reduction for 3 months or more in an eGFR <60 mL/min/1.73 m2 defines CKD. Patients with eGFR values >/=60 mL/min/1.73 m2 may also have CKD if evidence of persistent proteinuria is present. The original MDRD equation for estimated GFR is not valid for patients less than 18 years of age. Additional information may be found at www.kdoqi.org. 41 A1c value between 5.7% and 6.4% is considered at increased risk for diabetes. A1c value greater than 6.5 % is considered essentially diagnostic for Type II diabetes. Current guidelines recommend a treatment goal of <7% for diabetic patients. This method will measure glycosylated hemoglobin variants, HbS, HbG, HbH, HbWayne, HbC, HbE, etc. Other hemoglobin- opathies may give incorrect results with this test. 42 Vitamin D deficiency has been defined by the [place] [employer] and an Endocrine Society practice guideline as a level of serum 25-OH vitamin D less than 20 ng/mL (1,2). The Endocrine Society went on to further define vitamin D insufficiency as a level between 21 and 29 ng/mL (2). 1. IOM ([place] [employer]). 2010. Dietary reference intakes for calcium and D. [place]: The National Academies Press. 2. Alison Rodriguez, Javier LOU et al. Evaluation, treatment, and prevention of vitamin D deficiency: an Endocrine Society clinical practice guideline. JCEM. 2010; 96(7):1911-30. Performed at: RN - [facility] [address] [id number] [facility]: Arminda Edmonds MD, Phone: [phone] 43 Vitamin D deficiency has been defined by the [place] [employer] and an Endocrine Society practice guideline as a level of serum 25-OH vitamin D less than 20 ng/mL (1,2). The Endocrine Society went on to further define vitamin D insufficiency as a level between 21 and 29 ng/mL (2). 1. IOM ([place] [employer]). 2010. Dietary reference intakes for calcium and D. [place]: The National Academies Press. 2. Alison Rodriguez Bischoff-Ferrari HA et al. Evaluation, treatment, and prevention of vitamin D deficiency: an Endocrine Society clinical practice guideline. JCEM. 2010; 96(7):1911-30. Performed at: RN - [facility] [address] [id number] [facility]: Arminda Edmonds MD, Phone: [phone] 44 Note: Persistent reduction for 3 months or more in an eGFR <60 mL/min/1.73 m2 defines CKD. Patients with eGFR values >/=60 mL/min/1.73 m2 may also have CKD if evidence of persistent proteinuria is present. The original MDRD equation for estimated GFR is not valid for patients less than 18 years of age. Additional information may be found at www.kdoqi.org. 45 Vitamin D deficiency has been defined by the [place] [employer] and an Endocrine Society practice guideline as a level of serum 25-OH vitamin D less than 20 ng/mL (1,2). The Endocrine Society went on to further define vitamin D insufficiency as a level between 21 and 29 ng/mL (2). 1. IOM ([place] [employer]). 2010. Dietary reference intakes for calcium and D. [place]: The National Academies Press. 2. Cali MF, Alison PENDLETON, Javier LOU, et al. Evaluation, treatment, and prevention of vitamin D deficiency: an Endocrine Society clinical practice guideline. JCEM. 2010; 96(7):1911-30. Performed at: RN - [facility] [address] [id number] [facility]: Arminda Edmonds MD, Phone: [phone] 46 A1c value between 5.7% and 6.4% is considered at increased risk for diabetes. A1c value greater than 6.5 % is considered essentially diagnostic for Type II diabetes. Current guidelines recommend a treatment goal of <7% for diabetic patients. This method will measure glycosylated hemoglobin variants, HbS, HbG, HbH, HbWayne, HbC, HbE, etc. Other hemoglobin- opathies may give incorrect results with this test. 47 Note: Persistent reduction for 3 months or more in an eGFR <60 mL/min/1.73 m2 defines CKD. Patients with eGFR values >/=60 mL/min/1.73 m2 may also have CKD if evidence of persistent proteinuria is present. The original MDRD equation for estimated GFR is not valid for patients less than 18 years of age. Additional information may be found at www.kdoqi.org. 48 A1c value between 5.7% and 6.4% is considered at increased risk for diabetes. A1c value greater than 6.5 % is considered essentially diagnostic for Type II diabetes. Current guidelines recommend a treatment goal of <7% for diabetic patients. This method will measure glycosylated hemoglobin variants, HbS, HbG, HbH, HbWayne, HbC, HbE, etc. Other hemoglobin- opathies may give incorrect results with this test. 49 Vitamin D deficiency has been defined by the [place] [employer] and an Endocrine Society practice guideline as a level of serum 25-OH vitamin D less than 20 ng/mL (1,2). The Endocrine Society went on to further define vitamin D insufficiency as a level between 21 and 29 ng/mL (2). 1. IOM ([place] [employer]). 2010. Dietary reference intakes for calcium and D. [place]: The National Academies Press. 2. Cali MF, Alison [place], Javier LOU, et al. Evaluation, treatment, and prevention of vitamin D deficiency: an Endocrine Society clinical practice guideline. JCEM. 2010; 96(2):1911-30. Performed at: RN - [facility] [address] [id number] [facility]: Arminda Edmonds MD, Phone: [phone] 50 A1c value between 5.7% and 6.4% is considered at increased risk for diabetes. A1c value greater than 6.5 % is considered essentially diagnostic for Type II diabetes. Current guidelines recommend a treatment goal of <7% for diabetic patients. This method will measure glycosylated hemoglobin variants, HbS, HbG, HbH, HbWayne, HbC, HbE, etc. Other hemoglobin- opathies may give incorrect results with this test. 51 Note: Persistent reduction for 3 months or more in an eGFR <60 mL/min/1.73 m2 defines CKD. Patients with eGFR values >/=60 mL/min/1.73 m2 may also have CKD if evidence of persistent proteinuria is present. The original MDRD equation for estimated GFR is not valid for patients less than 18 years of age. Additional information may be found at www.kdoqi.org. 52 A1c value between 5.7% and 6.4% is considered at increased risk for diabetes. A1c value greater than 6.5 % is considered essentially diagnostic for Type II diabetes. Current guidelines recommend a treatment goal of <7% for diabetic patients. This method will measure glycosylated hemoglobin variants, HbS, HbG, HbH, HbWayne, HbC, HbE, etc. Other hemoglobin- opathies may give incorrect results with this test. 53 Note: Persistent reduction for 3 months or more in an eGFR <60 mL/min/1.73 m2 defines CKD. Patients with eGFR values >/=60 mL/min/1.73 m2 may also have CKD if evidence of persistent proteinuria is present. The original MDRD equation for estimated GFR is not valid for patients less than 18 years of age. Additional information may be found at www.kdoqi.org. Procedures Date Code Description Status 06/29/2017 54840 EKG Completed 09/30/2016 41304 Audiogram, Screen Only Pure Tone Completed 09/30/2015 42920 Audiogram, Screen Only Pure Tone Completed 09/27/2014 41531 Audiogram, Screen Only Pure Tone Completed 09/05/2013 44163 Snellen Only Vison Completed 09/05/2013 84313 Hearing Test Completed 08/01/2013 [id number] Colonoscopy Completed 03/06/2013 94188 EKG Completed 08/29/2012 66154 Snellen Only Vison Completed 08/29/2012 76847 EKG Completed 08/29/2012 10102 Hearing Test Completed 09/24/2010 52746 Snellen Only Vison Completed 09/24/2010 55763 Hearing Test Completed Encounters Type Date Location Provider Dx Diagnosis Office Visit 06/28/2018 8:45a Main Office Ginny Turcios PA Z00.01 Encounter for general adult medical exam w abnormal findings R79.9 Abnormal finding of blood chemistry, unspecified E11.69 Type 2 diabetes mellitus with other specified complication I10 Essential (primary) hypertension Office Visit 04/24/2018 8:45a Main Office Ginny Turcios PA E11.69 Type 2 diabetes mellitus with other specified complication R79.9 Abnormal finding of blood chemistry, unspecified E66.9 Obesity, unspecified Z23 Encounter for immunization Office Visit 03/28/2018 9:00a Main Office Ginny Turcios PA I10 Essential ( primary) hypertension R73.9 Hyperglycemia, unspecified K21.9 Gastro-esophageal reflux disease without esophagitis Office Visit 06/29/2017 9:30a Main Office Ginny Turcios PA Z01.818 Encounter for other preprocedural examination M75.121 Complete rotatr-cuff tear/ruptr of r shoulder, not trauma M75.21 Bicipital tendinitis, right shoulder I10 Essential (primary) hypertension E78.5 Hyperlipidemia, unspecified K21.9 Gastro-esophageal reflux disease without esophagitis R73.9 Hyperglycemia, unspecified R94.31 Abnormal electrocardiogram [ECG] [EKG] Office Visit 09/30/2016 8:30a Main Office Ginny Turcios PA Z00.01 Encounter for general adult medical exam w abnormal findings I10 Essential (primary) hypertension E78.5 Hyperlipidemia, unspecified K21.9 Gastro-esophageal reflux disease without esophagitis M25.511 Pain in right shoulder R73.9 Hyperglycemia, unspecified Z12.12 Encounter for screening for malignant neoplasm of rectum Office Visit 09/30/2015 8:30a Main Office Ginny Turcios PA Z00.01 Encounter for general adult medical exam w abnormal findings R21 Rash and other nonspecific skin eruption R79.9 Abnormal finding of blood chemistry, unspecified Z12.12 Encounter for screening for malignant neoplasm of rectum Office Visit 09/27/2014 8:30a Main Office Ginny Turcios PA V70.0 Examination General Medical Routine AT Health Care Facility 389.9 Hearing Loss Unspec v76.41 Screening Malignant Neoplasm Rectum Office Visit 02/12/2014 8:30a Main Office Ginny Turcios PA 380.22 Otitis Externa Other Acute Office Visit 01/03/2014 9:00a Main Office Ginny Turcios PA 250.00 Diabetes Mellitus W/O Compl Type II Or Unspec Controlled 401.1 Hypertension Benign 272.4 Hyperlipidemia Other Unspec 530.11 Esophagitis Reflux Office Visit 11/15/2013 4:15p Main Office Ginny Turcios PA 478.9 Upper Resp Tract Disease Other & Unspec 466.0 Bronchitis Acute 786.2 Cough Office Visit 09/05/2013 9:30a Main Office Ginny Turcios PA V70.0 Examination General Medical Routine AT Health Care Facility 461.9 Sinusitis Acute Unspec 250.00 Diabetes Mellitus W/O Compl Type II Or Unspec Controlled 401.1 Hypertension Benign 272.4 Hyperlipidemia Other Unspec 530.11 Esophagitis Reflux v76.41 Screening Malignant Neoplasm Rectum Office Visit 07/02/2013 8:30a Main Office Ginny Turcios PA 530.81 Esophageal Reflux 786.59 Pain Chest Other 401.1 Hypertension Benign 272.4 Hyperlipidemia Other Unspec 250.00 Diabetes Mellitus W/O Compl Type II Or Unspec Controlled Office Visit 03/06/2013 3:30p Main Office Ginny Turcios PA 530.81 Esophageal Reflux 786.59 Pain Chest Other 794.31 Electrocardiogram (ECG) (EKG) Abnormal Office Visit 02/28/2013 8:30a Main Office Ginny Turcios PA 401.1 Hypertension Benign 250.00 Diabetes Mellitus W/O Compl Type II Or Unspec Controlled 272.4 Hyperlipidemia Other Unspec 790.6 Abnormal Blood Chemistry Other Office Visit 08/29/2012 8:30a Main Office Ginny Turcios PA 790.6 Abnormal Blood Chemistry Other 401.1 Hypertension Benign 250.00 Diabetes Mellitus W/O Compl Type II Or Unspec Controlled 272.4 Hyperlipidemia Other Unspec V70.0 Examination General Medical Routine AT Health Care Facility V76.51 Special Screening For Malignant Neoplasms Colon V04.81 Need For Prophylactic Vaccination & Inoculation/Influenza Office Visit 07/04/2012 10:15a Main Office Ginny Turcios PA 478.9 Upper Resp Tract Disease Other & Unspec 461.1 Sinusitis Acute Frontal 401.1 Hypertension Benign Office Visit 04/21/2012 8:45a Main Office Ginny Turcios PA 250.00 Diabetes Mellitus W/O Compl Type II Or Unspec Controlled 401.9 Hypertension Unspec 272.4 Hyperlipidemia Other Unspec 790.6 Abnormal Blood Chemistry Other Office Visit 01/03/2012 8:30a Main Office Ginny Turcios PA 250.00 Diabetes Mellitus W/O Compl Type II Or Unspec Controlled 401.9 Hypertension Unspec 272.4 Hyperlipidemia Other Unspec V15.81 History Personal Noncompliance W/ Medical Treatment Office Visit 09/14/2011 8:30a Main Office Ginny Turcios PA 250.00 Diabetes Mellitus W/O Compl Type II Or Unspec Controlled 401.9 Hypertension Unspec 272.4 Hyperlipidemia Other Unspec 553.1 Hernia Umbilical Office Visit 05/26/2011 8:30a Main Office Ginny Turcios PA 250.00 Diabetes Mellitus W/O Compl Type II Or Unspec Controlled 401.9 Hypertension Unspec 272.4 Hyperlipidemia Other Unspec Office Visit 05/20/2011 2:15p Main Office Ginny Turcios PA 465.9 URI Upper Respiratory Infections Acute Unspec Sites 461.9 Sinusitis Acute Unspec 250.00 Diabetes Mellitus W/O Compl Type II Or Unspec Controlled Office Visit 09/24/2010 9:30a Main Office Ginny Turcios PA V70.0 Examination General Medical Routine AT Health Care Facility Office Visit 05/14/2010 11:30a Main Office Ginny Turcios PA 553.1 Hernia Umbilical Office Visit 11/05/2008 2:45p Main Office Ginny Turcios PA 784.0 Headache 339.10 Tension Type Headache, Unspecified 401.1 Hypertension Benign Office Visit 08/06/2008 11:15a Main Office Ginny Turcios PA 401.1 Hypertension Benign 461.9 Sinusitis Acute Unspec 473.9 Sinusitis Chronic Unspec Office Visit 04/05/2008 11:15a Main Office Ginny Turcios PA 401.9 Hypertension Unspec 461.9 Sinusitis Acute Unspec Office Visit 01/04/2008 9:30a Main Office Ginny Turcios PA 401.9 Hypertension Unspec 272.4 Hyperlipidemia Other Unspec 790.22 Impaired Glucose Tolerance Test (Oral) Office Visit 12/08/2007 11:45a Main Office Ginny Turcios PA 401.9 Hypertension Unspec Office Visit 08/04/2007 10:15a Main Office Ginny Turcios PA 465.9 URI Upper Respiratory Infections Acute Unspec Sites 461.9 Sinusitis Acute Unspec 466.0 Bronchitis Acute Plan of Treatment Future Appointment(s):09/28/2018 8:45 am - Ginny Turcios PA at Main [id number] - Ginny Turcios [id number] Encounter for general adult medical examination with [id number] Abnormal finding of blood chemistry, unspecifiedNew Labs: Hepatitis Acute Panel, Ordered: 06/28/18Liver Function Panel, Ordered: Lipid Profile (Trig/Chol/HDL), Ordered: 06/28/18E11.69 Type 2 diabetes mellitus with other specified complicationNew Labs:Basic Metabolic Panel, Ordered: 06/28/18Hemoglobin A1c (Glyco HGB), Ordered: 06/28/18Urine Microalbumin Random, Ordered: 06/28/18I10 Essential (primary) hypertensionFollow up:one month
[2018-07-31 07:25] VITALS: BP 159/91
--- NOTE | 2018-07-31 08:10 | UC ---
General HPI - HPI Summary HPI Summary: "I have a sinus infection" c/o 6 day hx worsing sinus pain. pressure and congestion. now having subjective fever, purulent bloody drainage. hx sinusitis and this feels the same. feels moving to chest. - History of Current Complaint Chief Complaint: UCRespiratory Stated Complaint: SINUS CONCERN Time Seen by Provider: 07/31/18 08:04 Hx Obtained From: Patient Onset/Duration: Gradual Onset Timing: Constant Pain Intensity: 0 Associated Signs & Symptoms: Positive: Fever, Headache - Allergy/Home Medications Allergies/Adverse Reactions: Allergies Allergy/AdvReac Type Severity Reaction Status Date / Time No Known Allergies Allergy Verified 07/31/18 07:21 PMH/Surg Hx/FS Hx/Imm Hx - Additional Past Medical History Additional PMH: sinusitis Cardiovascular History: Hypertension - Surgical History Surgical History: Yes Surgery Procedure, Year, and Place: LOW BACK SURGERY,2008, [facility]. HERNIA, 2010, [facility]. TONSILECTOMY A CHILD. [place] [facility] [place] - Family History Known Family History: Positive: Non-Contributory - Social History Alcohol Use: Occasionally Alcohol Amount: 6 PER WEEK Substance Use Type: None Smoking Status (MU): Never Smoked Tobacco Have You Smoked in the Last Year: No - Immunization History Most Recent Tetanus Shot: LESS THAN 10 YEARS Vaccination Up to Date: Yes Review of Systems All Other Systems Reviewed And Are Negative: Yes Constitutional: Positive: Fever Skin: Positive: Negative Eyes: Positive: Negative ENT: Positive: Nasal Discharge, Sinus Congestion, Sinus Pain/Tenderness Respiratory: Positive: Negative Cardiovascular: Positive: Negative Gastrointestinal: Positive: Negative Genitourinary: Positive: Negative Motor: Positive: Negative Neurovascular: Positive: Negative Musculoskeletal: Positive: Negative Neurological: Positive: Headache Psychological: Positive: Negative Is Patient Immunocompromised?: No Physical Exam Triage Information Reviewed: Yes Appearance: Well-Appearing Vital Signs: Initial Vital Signs Temp 98 F 07/31/18 07:19 Pulse 73 07/31/18 07:19 Resp 16 07/31/18 07:19 BP 159/91 07/31/18 07:19 Pulse Ox 98 07/31/18 07:19 Vital Signs Reviewed: Yes Eyes: Positive: Conjunctiva Clear ENT: Positive: Pharyngeal erythema, Nasal congestion, TMs normal, Sinus tenderness. Negative: Nasal drainage Neck: Positive: Supple, Nontender, No Lymphadenopathy Respiratory: Positive: Lungs clear, Normal breath sounds Cardiovascular: Positive: RRR, No Murmur Abdomen Description: Positive: Nontender, No Organomegaly, Soft Bowel Sounds: Positive: Present Musculoskeletal: Positive: ROM Intact Neurological: Positive: Alert Psychological: Positive: Age Appropriate Behavior Skin Exam: Normal Course/Dx - Course Course Of Treatment: given subjective fever, worsening and purulent drainage with blood, will tx for bacterial infection. - Diagnoses Provider Diagnosis: Sinusitis Discharge - Sign-Out/Discharge Documenting (check all that apply): Patient Departure All imaging exams completed and their final reports reviewed: No Studies - Discharge Plan Condition: Stable Disposition: HOME Prescriptions: Amoxicillin/Clavulanate TAB* [Augmentin TAB 875*] 875 mg PO BID 10 Days #20 tab Patient Education Materials: Sinusitis (ED) Referrals: Davonte Yanez MD [Primary Care Provider] - 7 Days - Billing Disposition and Condition Condition: STABLE Disposition: Home - Attestation Statements Provider Attestation: I was available for consult. This patient was seen by the SVITLANA. The patient was not presented to, seen by, or examined by me. -Vicenta
== END 2018-07-31 08:14 | disposition home or self-care (01) ==
LOC: UCCORT 07:04
DX: J32.9 Chronic sinusitis, unspecified (principal); I10 Essential (primary) hypertension
CPT/HCPCS: 99212; G0463